=== PATIENT | male | born 1995 | race Caucasian/White ===

== ENCOUNTER 2024-09-15 00:28 | Emergency (ER) | payer SELFPAY ==
[2024-09-15 00:28] VITALS: BMI 23.1
[2024-09-15 00:37] VITALS: BP 175/108
--- NOTE | 2024-09-15 02:14 | ED.GENMED ---
History of Present Illness
General
Chief Complaint: Crisis Evaluation
Source: patient
Exam Limitations: none
Time Seen by Provider: 09/15/24 01:29
Nursing documentation reviewed up to this point in time: agreed with
History of Present Illness
History of Present Illness:
Patient is a 28-year-old male who presents with police under 302. Patient repeatedly reports that he 'has no idea why he was brought here '. He states that his 'mom is crazy '. Patient states that he lives alone in an apartment in [place]. He
states he had a nice evening and limbered male followed by having a few drinks at [facility]. He states that his mom thinks he needs to go to rehab and that is why she called police.
Patient does report to alcohol use however at this point does not wish to go to rehab. He denies any SI, HI, visual/auditory hallucinations. He denies any past psychiatric history.
I did speak with patient's mother who states that exhibiting manic type behaviors for the past 6 weeks now. 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 Since then he has appeared very delusional and paranoid and
claimed that his mother was drugging him while he was staying at their house. She states that he is extremely disheveled and not taking care of himself. He drinks daily. She states he often stares blankly into space. She states that he has been
posting very strange things on social media which have prompted numerous people to reach out and concern of his safety.
Patient's mother states that she filed a 302 earlier this evening with [place] police.
Patient apparently has had prior admissions for suspected bipolar as well as alcohol detox/rehab.
Past History
Past History
ED Past Medical History: None
ED Past Surgical History: None
Social History
Tobacco: Smoker
Alcohol: Chronic alcoholic
Drug: Other (Patient admits to taking Xanax 'from a friend')
Personal: Single
Review of Systems
Review of Systems
Allergies reviewed?: Yes
All Other Systems: ROS reviewed and negative except as documented in HPI and ROS
Phy Exam
Physical Exam
Physical Exam:
Vitals: Hypertensive, otherwise vital signs stable. Afebrile
General: Patient is laying in bed calmly on phone.
Skin: Warm and dry, no rashes or lesions
Head: Normocephalic, atraumatic
Eyes: Sclera nonicteric. EOMs intact. No nystagmus.
Throat: Protecting airway
Neck: Normal ROM, no cervical spine tenderness, no meningismus
Cardiac: Regular rate and rhythm, no murmurs.
Pulm: Lungs clear. No respiratory distress
Abdomen: No abdominal tenderness.
Extremities: No evidence of cyanosis or edema
Neuro: AAOx3. Grossly intact.
Psychiatric: calm and cooperative. No SI or HI. Not responding to any internal stimuli on exam.
Course
Orders/Labs/Results
Orders:
Orders
09/15/24 01:30
Crisis Consult Routine
Reason for Consult: 302- manic behavior
09/15/24 01:48
1:1 Observation - Suicide/ Violent Behavior As Directed
Alcohol Urgent
Basic Metabolic Panel Urgent
Complete Blood Count/With Diff Urgent
Urine Drug Abuse Screen Urgent
Vital Signs
Initial and Last Documented VS:
Initial Vital Signs
Temp Pulse Resp BP Pulse Ox
97.9 F 93 16 175/108 96
09/15/24 00:37 09/15/24 00:37 09/15/24 00:37 09/15/24 00:37 09/15/24 00:37
Last Documented Vital Signs
Temp Pulse Resp BP Pulse Ox
97.9 F 93 16 175/108 96
09/15/24 00:37 09/15/24 00:37 09/15/24 00:37 09/15/24 00:37 09/15/24 02:14
MDM/Problems Addressed
Differential Diagnosis Includes:
Not limited to: Acute psychosis, jasmin, substance abuse, alcohol intoxication, etc.
MDM/Problems Addressed:
28-year-old male presenting with police under 302. According to mom, who filed 302, patient has been displaying manic behavior and inability to care for himself over the past 6 weeks. He has been expressing many delusional thoughts as well as
paranoia. He has been abusing alcohol. Mom states patient has lost his job. No threatening behavior to others. Hypertensive, otherwise vital signs stable. On exam�patient calm and cooperative. Repeatedly states he has no idea why his mother
filed a 302. She states she is 'crazy'. He repeatedly denies any SI, HI, hallucinations.
Will plan for evaluation by telepsych for further input regarding upholding of 302.
Given known alcohol abuse�will check labs, UDS, alcohol level. Patient apparently drank a significant mount of alcohol today�as of current withdrawal.
Update 4 AM: 302 was upheld by telepsych. Patient continues to refuse lab work. Disposition pending bed search for inpatient psychiatric facility. Will continue to attempt lab draw.
Chronic conditions affecting care:
Alcohol abuse, bipolar
Acute Exacerbation and/or Progression of Chronic Illness:
Acute jasmin, alcohol abuse
*Pulse Oximetry
SaO2: 96
Oxygen Mode of Delivery: Room air
Patient hypoxic: no
*EKG
Interpreted by ED Provider?: NA
*Engineer [employer]ated Equipment Interpretation
Rate: Engineer Automated Equipment- N/A
*Critical Care Note
Total Time (30-74mins, 75-104mins- exclusive of procedures): Not Applicable
ED Attending Note
-
Portions of this chart may have been created with voice recognition software.� Occasional wrong word or��sound alike� substitutions may have occurred due to the inherent limitations of voice recognition software.
Discharge Plan
Departure
Patient Disposition: Psych Facility
Date of Disposition: 09/15/24
Time of Disposition: 03:57
Discharge Problem:
Manic behavior, Alcohol abuse
Prescriptions:
No Action
lorazepam 1 MG tablet
1 mg PO Q4HPRN PRN (Reason: withdrawal) Qty: 5 0RF
Referrals:
NONE,* [Family Provider, Internal Medicine]
Interventions
Interventions:
*Risk Screen - Suicide Last Done: 09/15/24 00:58
*General Assessment Last Done: 09/15/24 00:59
*Neglect/Abuse Screening Last Done: 09/15/24 01:03
*ED- Fall Risk Assessment Last Done: 09/15/24 01:03
*ED COVID-19 Vaccine History Last Done: 09/15/24 01:03
ED-Psychological Assessment Last Done: 09/15/24 01:00
Discharge Date and Time
Print Language: VINCENTIAN
[2024-09-15 07:05] VITALS: BP 143/87
--- NOTE | 2024-09-15 10:20 | EDRN ---
[facility] transport took the patient. Report given to [facility] by mission worker.
== END 2024-09-15 10:10 ==
LOC: EMR 00:28
PROVIDERS: Physician Assistant; EMERGENCY PHYSICIAN Emergency Medicine
DX: F30.9 Manic episode, unspecified (principal); F31.9 Bipolar disorder, unspecified; F10.10 Alcohol abuse, uncomplicated; F17.200 Nicotine dependence, unspecified, uncomplicated; Z56.0 Unemployment, unspecified
CPT/HCPCS: 99285; 80306